=== PATIENT | male | born 1980 | race Two or more races ===

== ENCOUNTER 2024-10-25 15:07 | Inpatient (IN) | payer BC, SELFPAY ==
[2024-10-25] VITALS (37 sets, daily range): BP systolic 134–176; BP diastolic 84–111; PULSE 0–74; RESP 15–93; TEMP 36.1–36.9; O2SAT 90–98; BMI 27.4; BMI 29.2
--- NOTE | 2024-10-25 15:22 | XR_ITS ---
Examination: CT abdomen with intravenous contrast CT pelvis with intravenous contrast 2-D coronal reconstructions 2-D sagittal reconstructions Date and time of exam:October 25, 2024 1728 hours INDICATIONS: Onset upper abdominal pain today, history acute pancreatitis November 02, 2023. CTDI: vol (mGy) 6.9 DLP: (mGycm) 433 Technique: Multiple axial sections of the abdomen and pelvis have been obtained. 64 slice high-resolution scanner used. 3 mm axial sections have been obtained, post intravenous injection 60 cc [id number] 2-D sagittal, coronal reconstructions obtained. Low dose protocols were performed. One or more of the following dose reduction techniques were used; automated exposure control, adjustment of the mA and/or KV according to patient size, use of iterative reconstruction technique. Findings: No focal liver or splenic lesions Fatty infiltration throughout the liver No gallstones Severe acute pancreatitis, no pseudocyst No hydronephrosis Aorta normal size Normal appendix Colonic diverticulosis Contracted urinary bladder IMPRESSION: Severe acute pancreatitis
--- NOTE | 2024-10-25 15:24 | PD.EDRME ---
Rapid Medical Screening Exam RME Arrival date/time: 10/25/24 15:07 44-year-old male with history of pancreatitis and everyday alcohol use presents emergency department today for complaints of upper abdominal pain Chief Complaint: Abdominal Pain Vital signs: Vital Signs Temperature 98.4 F 10/25/24 15:17 Pulse Rate 55 L 10/25/24 15:17 Respiratory Rate 16 10/25/24 15:17 Blood Pressure 159/99 H 10/25/24 15:17 Pulse Oximetry (%) 98 10/25/24 15:17 Oxygen Delivery Method Room Air 10/25/24 15:17
[2024-10-25 15:40] LABS: Collection Type, Urine Clean Catch
[2024-10-25 15:46] LABS: Basophils % (Auto) 0 % (0-2.5); Eosinophils % (Auto) 0 % (0-10); Hematocrit 44.9 % (41.0-53.0); Hemoglobin 16.2 g/dL (13.5-16.0); Immature Granulocytes % (Auto) 0 % (0-0); Immature Granulocytes Auto 0.04 Thou/mm3 (0.00-0.00); Lymphocytes # (Auto) 0.7 Thou/mm3 (1.0-4.8); Lymphocytes % (Auto) 6 % (10-50); Mean Corpuscular HGB Conc 36.1 g/dl (31.0-37.0); Mean Corpuscular Hemoglobin 32.9 pg (25.0-35.0); Mean Corpuscular Volume 91 fL (80-100); Monocytes # (Auto) 0.8 Thou/mm3 (0.0-0.8); Monocytes % (Auto) 6 % (0-12); Neutrophils # (Auto) 10.5 Thou/mm3 (1.8-7.7); Neutrophils % (Auto) 87 % (37-80); Nucleated Red Blood Cell % 0 /100 WBC (0); Platelet Count 232 Thou/mm3 (140-440); RDW Standard Deviation 41.8 fL (35.1-43.9); Red Blood Count 4.93 Miln/mm3 (4.50-5.90); White Blood Count 12.1 Thou/mm3 (3.8-10.6)
[2024-10-25 15:48] LABS: Bilirubin,Urine Negative (Negative); Blood,Urine 2+ (Negative); Color,Urine Yellow (Lt Yel-Yel); Culture Indicated,Urine Not Indicated; Glucose, Urine Negative (Negative); Ketones,Urine 2+ (Negative); Leukocyte Esterase,Urine Negative (Negative); Nitrite,Urine Negative (Negative); Protein,Urine 1+ (Neg - Trace); RBC,Urine 19 /hpf (0-3); Specific Gravity,Urine 1.039 (1.001-1.035); Squamous Epithelial Cell,Urine < 1 /hpf (0-5); Urobilinogen,Urine Negative mg/dL (0.0-1.0); WBC,Urine 3 /hpf (0-5)
[2024-10-25 15:56] LABS: Alcohol, Urine Negative (Negative); Amphetamine/Methamp Scrn,U Negative (Negative); Barbiturate Screen,Urine Negative (Negative); Benzodiazepines Screen,Urine Negative (Negative); Benzoylecgonine Screen, Ur Positive (Negative); Fentanyl Screen,Urine Negative (Negative); Opiate Screen,Urine Negative (Negative); THC Screen,Urine Negative (Negative)
[2024-10-25 16:00] LABS: Clarity,Urine Hazy (Clear/Hazy)
[2024-10-25 16:19] LABS: Alanine Aminotransferase 45 U/L (10-49); Albumin, Serum 4.9 gm/dL (3.5-5.0); Albumin/Globulin Ratio 1.8 (1.2-2.2); Alkaline Phosphatase 95 U/L (46-116); Anion Gap 9 (7-16); Aspartate Amino Transferase 34 U/L (0-34); BUN/Creatinine Ratio 8 Ratio (12-20); Bilirubin,Total 1.2 mg/dL (0.3-1.2); Blood Urea Nitrogen 8 mg/dL (9-23); Calcium 9.8 mg/dL (8.3-10.6); Calcium (Corrected) 9.8 mg/dL (8.5-10.1); Carbon Dioxide 30.8 mMol/L (20.0-31.0); Chloride 95 mMol/L (98-107); Globulin 2.8 gm/dL (2.3-3.5); Glucose 135 mg/dL (74-106); Lipase 1256 U/L (12-53); Osmolality,Calculated 270 (275-295); Potassium 4.2 mMol/L (3.4-5.1); Sodium 135 mMol/L (136-145); Total Protein 7.7 gm/dL (5.7-8.2); eGFR > 60 See Note
--- NOTE | 2024-10-25 16:34 | PD.EDABDPN ---
ED Abdominal Pain RME/HPI General Chief Complaint: Abdominal Pain Stated complaint: ABD PAIN SINCE WEDNESDAY Time seen by provider: 10/25/24 16:14 Arrival date/time: 10/25/24 15:07 RME / HPI RME / HPI narrative: 44-year-old male with history of pancreatitis and everyday alcohol use presents emergency department today for complaints of upper abdominal pain. Onset of symptoms for 1 to 2 days, severity of symptoms moderate. Patient denies any fever denies any vomiting denies any other complaints. Last alcohol intake was 3 days ago. Patient was admitted in the hospital for acute pancreatitis. Related Data Previous Rx's ?Medication ?Instructions ?Recorded amlodipine 10 mg tablet 10 mg PO QDAY #30 tabs 11/05/23 pantoprazole 40 mg tablet,delayed 40 mg PO QDAY #30 tabs 11/05/23 release (Protonix) Allergies Allergy/AdvReac Type Severity Reaction Status Date / Time Penicillins Allergy Verified 10/25/24 15:10 Review of Systems Review of Systems Narrative Review of Systems: Review of system reviewed and within normal limits except mentioned in HPI ED Exam Narrative Physical exam: VITAL SIGNS: Reviewed. GENERAL APPEARANCE: Alert and interactive, follows commands, no acute distress, HEAD AND FACE: Non-traumatic. ENT: PERRL, pink conjunctivitis, eyelid no trauma, Mucous membrane moist. NECK: Supple, nontender, no nuchal rigidity. CHEST: No tenderness, no crepitus, no paradoxical movement, no retractions. LUNGS: Clear, well ventilated, symmetric, no rales, no wheezing, no ronchi, no stridor, good breath sounds bilaterally. HEART: Regular rate, regular rhythm, no murmur, no gallops. ABDOMEN: Soft, positive bowel sounds, nondistended, no guarding, left upper abdominal tenderness, no rebound, no masses, RECTAL: Deferred. GENITAL: Deferred. NEUROLOGICAL: Gross motor function intact sensory function intact, Appropriate for age. MUSCULOSKELETAL: low back nontender, full range of motion. EXTREMITIES: Nontender, full range of motion. SKIN: Color pink, dry, no rash, no lacerations, no abrasions, no contusions. LYMPHATICS: Deferred. Course Quality Measures none Orders Category Date Time Status Admit to Inpatient Status Routine Admission 10/25/24 22:04 Active Patient Condition Routine Admission 10/25/24 22:04 Ordered Aspiration precautions NOW Care 10/25/24 22:11 Active COVID-19 Screening Questionnaire NOW Care 10/25/24 20:[address] Screening NOW Care 10/25/24 15:23 Active Decision to Admit X1 Care 10/25/24 20:03 Completed Insert IV NOW Care 10/25/24 15:23 Active Intake and Output QSHIFT Care 10/25/24 22:15 Ordered Miscellaneous Nursing Order NOW Care 10/25/24 22:17 Active NPO NOW Care 10/25/24 16:21 Active NPO NOW Care 10/25/24 22:11 Active Notify provider NEEDED Care 10/25/24 22:04 Active Nurse Swallow Screen X1 Care 10/25/24 22:17 Active Seizure precautions NEEDED Care 10/25/24 22:05 Active Diet NPO (NOW) Diet 10/25/24 16:21 Completed Diet NPO (NOW) Diet 10/25/24 22:[address] abdomen pelvis w con Stat Exams 10/25/24 15:22 Completed US gall bladder Stat Exams 10/25/24 16:36 Completed Alcohol, Urine Stat Lab 10/25/24 15:36 Completed CBC AM DRAW Lab 10/26/24 05:00 Ordered CBC AM DRAW Lab 10/27/24 05:00 Ordered CBC AM DRAW Lab 10/28/24 05:00 Ordered CBC Stat Lab 10/25/24 15:34 Completed Comprehensive Metabolic Panel AM DRAW Lab 10/26/24 05:00 Ordered Comprehensive Metabolic Panel AM DRAW Lab 10/27/24 05:00 Ordered Comprehensive Metabolic Panel AM DRAW Lab 10/28/24 05:00 Ordered Comprehensive Metabolic Panel Stat Lab 10/25/24 15:34 Completed Drug Screen,Urine Stat Lab 10/25/24 15:36 Completed Lipase Stat Lab 10/25/24 15:34 Completed Lipid Panel AM DRAW Lab 10/26/24 05:00 Ordered Lipid Panel Stat Lab 10/25/24 15:34 Completed Magnesium AM DRAW Lab 10/26/24 05:00 Ordered Magnesium AM DRAW Lab 10/27/24 05:00 Ordered Magnesium AM DRAW Lab 10/28/24 05:00 Ordered Prothrombin Time with INR AM DRAW Lab 10/26/24 05:00 Ordered Troponin I Stat Lab 10/25/24 15:34 Completed UA, C/S IF [Urinalysis, C/S if Indicated] Stat Lab 10/25/24 15:36 Completed Acetaminophen Tab [Tylenol Tab] Med 10/25/24 22:10 Ordered 650 mg PO Q6H PRN Folic Acid Med 10/25/24 22:15 Ordered 1 mg PO BID HYDROcodone*/APAP 5/325 [[place] 5/325] Med 10/25/24 22:10 Ordered 1 tab PO Q4HR PRN Heparin Inj Med 10/26/24 06:00 Ordered 5,000 unit SC Q8HR LORazepam [Ativan Inj] Med 10/25/24 16:35 Discontinued 2 mg IVP X1 ONE LORazepam [Ativan] Med 10/25/24 22:15 Ordered 0.5 mg PO Q4HR PRN LORazepam [Ativan] Med 10/25/24 22:15 Ordered 1 mg PO Q4HR PRN LORazepam [Ativan] Med 10/25/24 22:15 Ordered 2 mg PO Q4HR PRN Morphine Inj Med 10/25/24 22:10 Ordered 1 mg IVP Q2H PRN Morphine Inj Med 10/25/24 16:20 Discontinued 4 mg IVP X1 ONE Morphine Inj Med 10/25/24 20:04 Discontinued 4 mg IVP X1 ONE Ondansetron Inj [Zofran Inj] Med 10/25/24 22:10 Ordered 4 mg IVP Q6H PRN Ondansetron Inj [Zofran Inj] Med 10/25/24 16:20 Discontinued 4 mg IVP X1 ONE Ringers Lactated 1000 ml [Lactated Ringers] 1,000 ml Med 10/25/24 16:36 Discontinued IV 999 mls/hr Sodium Chloride 0.9% 1000 ml [Ns] 1,000 ml Med 10/25/24 22:15 Ordered IV 110 mls/hr Thiamine [Vitamin B-1] Med 10/25/24 22:15 Ordered 100 mg PO BID Code Status Routine Oth 10/25/24 22:04 Ordered Oxygen Delivery PRN RT 10/25/24 22:04 Active Vital Signs Vital signs: Vital Signs Temperature 98.4 F 10/25/24 15:17 Pulse Rate 55 L 10/25/24 15:17 Respiratory Rate 16 10/25/24 15:17 Blood Pressure 159/99 H 10/25/24 15:17 Pulse Oximetry (%) 98 10/25/24 15:17 Oxygen Delivery Method Room Air 10/25/24 15:17 Abdominal Pain [facility] Narrative [facility] Narrative:: 44-year-old male with history of pancreatitis and everyday alcohol use presents emergency department today for complaints of upper abdominal pain. Onset of symptoms for 1 to 2 days, severity of symptoms moderate. Patient denies any fever denies any vomiting denies any other complaints. Last alcohol intake was 3 days ago. Patient was admitted in the hospital for acute pancreatitis. Patient's workup is significant for leukocytosis of 12.1 CMP unremarkable except for lipase of 1256. Ultrasound of the gallbladder came back unremarkable patient tested positive for cocaine. Urine alcohol is negative. CT scan of the abdomen is significant for severe pancreatitis otherwise unremarkable. Patient received IV fluids, lorazepam, morphine IV Discussed with hospitalist who admitted the patient. Patient data External records reviewed:: None Clinical information provided by:: patient Social determinants that could affect healthcare access:: alcohol use Patient has the following chronic illnesses:: Chronic alcoholism How is presenting disease/condition affected by chronic disease/condition?: exacerbated by Evaluation data The following diagnostics were reviewed and interpreted by me:: lab results and radiology exam(s) Lab and/or radiology exams considered but not ordered:: Plan see results [facility] Interpretation Summary: See results in MDM Medications / Prescriptions Medications or Prescriptions considered but not ordered:: None Medication administrations:: Medication Administration History Acetaminophen (Acetaminophen 325 Mg Tablet) 650 mg PO Q6H PRN PRN Reason: pain and Fever >100.4 Stop: 11/24/24 22:09 Hydrocodone Bitart/Acetaminophen (Hydrocodone/Apap 5/325 Tablet) 1 tab PO Q4HR PRN PRN Reason: PAIN SCALE 4-6 (Moderate Stop: 10/30/24 22:09 Folic Acid (Folic Acid 1 Mg Tablet) 1 mg PO BID [facility] Stop: 10/30/24 22:14 Heparin Sodium (Porcine) (Heparin Sod Inj 5000 Unit/Ml Vial) 5,000 unit SC Q8HR [facility] Stop: 11/09/24 05:59 Sodium Chloride (Ns) 1,000 mls @ 110 mls/hr IV .Q9H6M [facility] Stop: 10/27/24 01:31 Lorazepam (Lorazepam 0.5 Mg Tablet) 0.5 mg PO Q4HR PRN PRN Reason: CIWA Score 2-6 Stop: 10/30/24 22:14 Lorazepam (Lorazepam 0.5 Mg Tablet) 1 mg PO Q4HR PRN PRN Reason: CIWA SCORE 7-11 Stop: 10/30/24 22:14 Lorazepam (Lorazepam 0.5 Mg Tablet) 2 mg PO Q4HR PRN PRN Reason: CIWA SCORE 12-15 Stop: 10/30/24 22:14 Morphine Sulfate (Morphine Sulf Inj 10 Mg/Ml Vial) 1 mg IVP Q2H PRN PRN Reason: PAIN SCALE 7-10 (Severe Stop: 10/30/24 22:09 Ondansetron HCl (Ondansetron Inj 2 Mg/Ml Inj 2 Ml) 4 mg IVP Q6H PRN; Protocol PRN Reason: NAUSEA OR VOMITING Stop: 11/24/24 22:09 Thiamine HCl (Thiamine 100 Mg Tablet) 100 mg PO BID KRISTIN Stop: 10/30/24 22:14 Discontinued Medications Lactated Ringer's (Lactated Ringers) 1,000 mls @ 999 mls/hr IV .Q1H1M ONE Stop: 10/25/24 17:36 Last Infusion: 10/25/24 19:15 Dose: Infused Documented By: Admin: 10/25/24 17:27 Dose: 999 mls/hr Documented By: CG Lorazepam (Lorazepam 2 Mg/Ml Vial) 2 mg IVP X1 ONE Stop: 10/25/24 16:36 Last Admin: 10/25/24 17:26 Dose: 2 mg Documented By: CG Morphine Sulfate (Morphine Sulf Inj 10 Mg/Ml Vial) 4 mg IVP X1 ONE Stop: 10/25/24 16:21 Last Admin: 10/25/24 17:26 Dose: 4 mg Documented By: CG Morphine Sulfate (Morphine Sulf Inj 10 Mg/Ml Vial) 4 mg IVP X1 ONE Stop: 10/25/24 20:05 Last Admin: 10/25/24 20:46 Dose: 4 mg Documented By: CG Ondansetron HCl (Ondansetron Inj 2 Mg/Ml Inj 2 Ml) 4 mg IVP X1 ONE; Protocol Stop: 10/25/24 16:21 Last Admin: 10/25/24 17:27 Dose: 4 mg Documented By: CG IV fluids, morphine, lorazepam and Zofran Consultations Consultation(s) initiated? (list below): No Consultation #1 (Physician, Specialty, Details): None Diagnosis Differential diagnosis abdominal pain: abdominal pain, pancreatitis and small bowel obstruction Most likely diagnosis given after review of the tests above:: Chronic alcoholism, acute pancreatitis Admission Indicated Admission indicated?: indicated Explain why admission is indicated or not indicated:: Patient is to be admitted for further management Admission Request Was there a request for admission?: Yes Admission Attestation Admission request attestation: Discussed case with [Dr. Jules] from Hospitalist service regarding admission. Discussed patients ED course, exam findings, labs, and radiology results. The Hospitalist [agrees] to accept the patient for admission. Disposition Plan Disposition Plan: Admit Discharge Plan Plan Patient Disposition: Admit Acute Care w/in Hospital Prescriptions/Referrals Prescriptions/Med Rec: No Action amlodipine 10 mg tablet 10 mg PO QDAY Qty: 30 0RF pantoprazole [Protonix] 40 mg tablet,delayed release (DR/EC) 40 mg PO QDAY Qty: 30 0RF Referrals: Gavin Maria MD ([place]) [Primary Care Provider] - In 1 week Problem List Clinical Impression: Acute pancreatitis Patient/Caregiver Discharge Instructions Print Language: Portuguese Stand Alone Forms: Maureen Award Info., Patient Portal Info Letter
--- NOTE | 2024-10-25 16:36 | XR_ITS ---
Examination: Abdomen sonogram, Limited Date and time of exam: October 25, 2024 1447 hours INDICATIONS: Abdominal pain beginning 3 days ago, history pancreatitis one year ago Technique: Real-time delgado scale transabdominal sonographic images of the upper abdomen obtained. Findings: Normal gallbladder Normal common bile duct 0.5 cm Pancreatic and 3.0 cm Liver 15.4 cm fatty infiltration Normal hepatopedal portal venous flow Patent IVC IMPRESSION: Normal gallbladder. Fatty liver
[2024-10-25] MEDS: LORazepam 2 MG/ML VIAL IVP (17:26)
[2024-10-25] MEDS: MORPHINE SULF INJ 10 MG/ML VIAL 4 MG IVP ×2 (17:26→20:46)
[2024-10-25] MEDS: RINGERS LACTATED 1000 ML 1,000 ML 999 ML IV (17:27)
[2024-10-25] MEDS: ONDANSETRON INJ 2 MG/ML INJ 2 ML 4 MG IVP (17:27)
[2024-10-25 17:56] LABS: Cardiac Risk Estimate 2.8 RATIO (4.0-6.7); Cholesterol 211 mg/dL (132-200); HDL Cholesterol 76 mg/dL (40-60); LDL Cholesterol,Calculated 113 mg/dL (0-130); Triglycerides 110 mg/dL (30-150); Troponin I < 0.020 ng/mL (0.0-0.045)
--- NOTE | 2024-10-25 22:28 | ESHP_ITS ---
<Statement entered by Trista Guido MD - 10/26/24 06:02> I Trista Guido MD reviewed the note and agree with the resident's assessment & plan with exceptions as below. I have personally reviewed labs, imaging, home meds/prior records, examined the patient, formulated and discussed management plan with the IM team. 44-year-old male with Hx of HTN, polysubstance use disorder, fatty liver presented to ED with abdominal pain and nausea noted to have acute pancreatitis. Reports taking heavy amount of alcohol particularly on weekends with which drinking. Also noted to have cocaine on UDS. Will proceed with IV fluid resuscitation, keep n.p.o., start on Protonix 40 mg IV daily and Zofran for nausea as needed. Obtain CXR and EKG and echocardiogram for evaluation of myocardial function in the setting of chronic substance use. Will start on liquid diet as tolerated likely tomorrow afternoon Documentation for date of: 10/25/24 HPI History of Present Illness Chief complaint: Abdominal pain History of present illness: 44-year-old male with past medical history of alcohol abuse disorder who presented to the ED due to abdominal pain. Patient states abdominal pain started since Wednesday that has been progressively getting worse. He states he was not drinking the prior night states he had a bit too much to drink ate something and went to sleep and then the following day he woke up with the abdominal pain. He states he drinks at least 15 beers a day, everyday. Currently pain is rated 10 out of 10 and has been unable to have any p.o. intake since Wednesday. Patient denies fever, chills, shortness of breath, chest pain, palpitations, nausea, vomiting, diarrhea, recent travel, sick contacts. ED course: ED vitals: BP 159/99, HR 55, saturating 98% on room air ED labs: Leukocytosis, polycythemia, sodium 135, chloride 95, BUN 8, glucose 135, cholesterol 211, HDL 76, lipase 1256, UA showed 2+ ketones 2+ blood 1+ protein, U-Tox positive for cocaine, gallbladder ultrasound shows normal gallbladder, fatty liver, abdomen pelvis CT scan shows severe acute pancreatitis. In the ED patient received morphine 4 mg, lorazepam, Zofran, 1 L LR, thiamine, folic acid. PMHx: As above SX Hx: None Social Hx: Cocaine (last use Wednesday), drinks at least 15 beers a day last drink on Wednesday, denies cigarette use Review of Systems Review of Systems Systems Reviewed: All systems reviewed, normal except as documented Narrative Review of Systems: All 12 systems reviewed and found negative unless otherwise states in [facility] HPI. Exam Vital Signs Temp Pulse Resp BP Pulse Ox O2 Del Method O2 Flow Rate 98.4 F 51 L 17 172/105 H 96 Nasal Cannula 3 10/25/24 22:13 10/25/24 22:13 10/25/24 22:13 10/25/24 22:13 10/25/24 22:13 10/25/24 22:13 10/25/24 22:13 Narrative Exam GENERAL: NAD, AAOx3 HEENT: Dry mucosa. Eyes open, symmetrical, & clear CARDIO: Heart RRR, no obvious murmurs PULM: No noted coughing/dyspnea CTA B/L, no R/W/R GI: Abdomen soft, nondistended, pain to palpation in epigastric region. BS appreciated SKIN/MSK/EXT: No wounds/rashes/edema/amputations, no pain on palpation. Pedal pulses present B/L NEURO: AAOx3, no focal neuro deficits, able to move all 4 extremities Results: Labs 10/25/24 15:34 10/25/24 15:34 Labs: Short CBC 10/25/24 Range/Units 15:34 WBC 12.1 H (3.8-10.6) Thou/mm3 Hgb 16.2 H (13.5-16.0) g/dL Hct 44.9 (41.0-53.0) % Plt Count 232 (140-440) Thou/mm3 [facility] 10/25/24 15:34 Sodium 135 L Potassium 4.2 Chloride 95 L Carbon Dioxide 30.8 BUN 8 L Creatinine 1.0 Glucose 135 H Calcium 9.8 Cardiac Enzymes 10/25/24 Range/Units 15:34 Troponin I < 0.020 (0.0-0.045) ng/mL Liver Function 10/25/24 Range/Units 15:34 Total Bilirubin 1.2 (0.3-1.2) mg/dL AST 34 (0-34) U/L ALT 45 (10-49) U/L Alkaline Phosphatase 95 (46-116) U/L Albumin 4.9 (3.5-5.0) gm/dL Urine 10/25/24 Range/Units 15:36 Urine Color Yellow (Lt Yel-Yel) Urine Clarity Hazy (Clear/Hazy) Urine pH 6.0 (5.0-7.0) Ur Specific [place] 1.039 H (1.001-1.035) Urine Protein 1+ A (Neg - Trace) Urine Glucose (UA) Negative (Negative) Quality Measures Quality Measures none Medications Home Medications and Allergies Allergies Allergy/AdvReac Type Severity Reaction Status Date / Time Penicillins Allergy Verified 10/25/24 15:10 Visit Medications Acetaminophen (Acetaminophen 325 Mg Tablet) 650 mg PO Q6H PRN PRN Reason: pain and Fever >100.4 Stop: 11/24/24 22:09 Hydrocodone Bitart/Acetaminophen (Hydrocodone/Apap 5/325 Tablet) 1 tab PO Q4HR PRN PRN Reason: PAIN SCALE 4-6 (Moderate Stop: 10/30/24 22:09 Folic Acid (Folic Acid 1 Mg Tablet) 1 mg PO BID [facility] Stop: 10/30/24 22:14 Heparin Sodium (Porcine) (Heparin Sod Inj 5000 Unit/Ml Vial) 5,000 unit SC Q8HR [facility] Stop: 11/09/24 05:59 Sodium Chloride (Ns) 1,000 mls @ 110 mls/hr IV .Q9H6M [facility] Stop: 10/27/24 01:31 Lorazepam (Lorazepam 0.5 Mg Tablet) 0.5 mg PO Q4HR PRN PRN Reason: CIWA Score 2-6 Stop: 10/30/24 22:14 Lorazepam (Lorazepam 0.5 Mg Tablet) 1 mg PO Q4HR PRN PRN Reason: CIWA SCORE 7-11 Stop: 10/30/24 22:14 Lorazepam (Lorazepam 0.5 Mg Tablet) 2 mg PO Q4HR PRN PRN Reason: CIWA SCORE 12-15 Stop: 10/30/24 22:14 Morphine Sulfate (Morphine Sulf Inj 10 Mg/Ml Vial) 1 mg IVP Q2H PRN PRN Reason: PAIN SCALE 7-10 (Severe Stop: 10/30/24 22:09 Ondansetron HCl (Ondansetron Inj 2 Mg/Ml Inj 2 Ml) 4 mg IVP Q6H PRN; Protocol PRN Reason: NAUSEA OR VOMITING Stop: 11/24/24 22:09 Thiamine HCl (Thiamine 100 Mg Tablet) 100 mg PO BID KRISTIN Stop: 10/30/24 22:14 Discontinued Medications Lactated Ringer's (Lactated Ringers) 1,000 mls @ 999 mls/hr IV .Q1H1M ONE Stop: 10/25/24 17:36 Last Infusion: 10/25/24 19:15 Dose: Infused Lorazepam (Lorazepam 2 Mg/Ml Vial) 2 mg IVP X1 ONE Stop: 10/25/24 16:36 Last Admin: 10/25/24 17:26 Dose: 2 mg Morphine Sulfate (Morphine Sulf Inj 10 Mg/Ml Vial) 4 mg IVP X1 ONE Stop: 10/25/24 16:21 Last Admin: 10/25/24 17:26 Dose: 4 mg Morphine Sulfate (Morphine Sulf Inj 10 Mg/Ml Vial) 4 mg IVP X1 ONE Stop: 10/25/24 20:05 Last Admin: 10/25/24 20:46 Dose: 4 mg Ondansetron HCl (Ondansetron Inj 2 Mg/Ml Inj 2 Ml) 4 mg IVP X1 ONE; Protocol Stop: 10/25/24 16:21 Last Admin: 10/25/24 17:27 Dose: 4 mg Assessment & Plan Plan 44-year-old male with past medical history as stated above who presented to the ED due to abdominal pain. Patient will be admitted for management of acute pancreatitis. #Acute pancreatitis #Alcohol use disorder #Cocaine use disorder Likely secondary to heavy alcohol use Abdominal CT scan shows acute pancreatitis Lipase 1256 CIWA of 1-2 at the time of evaluation in ED ? N.p.o. for now as patient does not want to eat, can start clear liquid diet and advance as tolerated ? CIWA protocol ? Thiamine ? Folic acid ? Aggressive IV hydration ? Pain control ? consider social consult in the setting of alcoholl abuse and cocaine abuse Health Maintenance: Disposition: MedSurg, aggressive IV hydration Fluids: NS Feeding: N.p.o. Thrombo prophylaxis: Heparin Gastric Ulcer prophylaxis: Not indicated CODE STATUS: Full code Case discussed with my attending Dr. Hay Aguiar MD PGY-1 Disclaimer: Despite multiple revisions, due to the dictation software being used, the document bellow may not be free of grammatical errors including phonetic/typographic errors. However, this does not deter from our commitment to providing health care in the patient's best interest in mind.
[2024-10-25] MEDS: THIAMINE 100 MG TABLET PO (22:56)
[2024-10-25] MEDS: FOLIC ACID 1 MG TABLET PO (22:56)
[2024-10-25] MEDS: SODIUM CHLORIDE 0.9% 1000 ML 1,000 ML 110 ML IV (22:57)
--- NOTE | 2024-10-25 23:10 | XR_ITS ---
Examination: AP chest single view TECHNIQUE: AP portable upright chest single view Date and time: October 25, 2024 11:35 PM Comparison February 24, 2024 INDICATIONS: Chest pain today FINDINGS: Normal heart size. Lungs are clear. The osseous structures are intact IMPRESSION: No active disease
[2024-10-26] VITALS (9 sets, daily range): BP systolic 138–168; BP diastolic 76–102; PULSE 49–80; RESP 16–98; TEMP 36.2–36.7; O2SAT 95–98
[2024-10-26] MEDS: ACETAMINOPHEN 325 MG TABLET 650 MG PO ×2 (00:17→19:12)
[2024-10-26] MEDS: MORPHINE SULF INJ 10 MG/ML VIAL IVP (03:44)
[2024-10-26] MEDS: HEPARIN SOD INJ 5000 UNIT/ML VIAL SC ×3 (05:12→22:03)
[2024-10-26 05:28] LABS: Basophils % (Auto) 0 % (0-2.5); Eosinophils % (Auto) 0 % (0-10); Hematocrit 43.9 % (41.0-53.0); Hemoglobin 15.7 g/dL (13.5-16.0); Immature Granulocytes % (Auto) 0 % (0-0); Immature Granulocytes Auto 0.04 Thou/mm3 (0.00-0.00); Lymphocytes # (Auto) 0.6 Thou/mm3 (1.0-4.8); Lymphocytes % (Auto) 5 % (10-50); Mean Corpuscular HGB Conc 35.8 g/dl (31.0-37.0); Mean Corpuscular Volume 92 fL (80-100); Monocytes # (Auto) 0.8 Thou/mm3 (0.0-0.8); Monocytes % (Auto) 7 % (0-12); Neutrophils # (Auto) 10.3 Thou/mm3 (1.8-7.7); Neutrophils % (Auto) 88 % (37-80); Nucleated Red Blood Cell % 0 /100 WBC (0); Platelet Count 186 Thou/mm3 (140-440); RDW Standard Deviation 42.2 fL (35.1-43.9); Red Blood Count 4.76 Miln/mm3 (4.50-5.90); White Blood Count 11.8 Thou/mm3 (3.8-10.6)
[2024-10-26 05:38] LABS: Prothrombin Time 10.9 Seconds (9.0-12.2)
[2024-10-26 06:07] LABS: Alanine Aminotransferase 31 U/L (10-49); Albumin, Serum 4.2 gm/dL (3.5-5.0); Albumin/Globulin Ratio 1.7 (1.2-2.2); Alkaline Phosphatase 77 U/L (46-116); Anion Gap 8 (7-16); Aspartate Amino Transferase 26 U/L (0-34); BUN/Creatinine Ratio 9 Ratio (12-20); Blood Urea Nitrogen 8 mg/dL (9-23); Calcium 9.2 mg/dL (8.3-10.6); Calcium (Corrected) 9.2 mg/dL (8.5-10.1); Carbon Dioxide 29.4 mMol/L (20.0-31.0); Cardiac Risk Estimate 2.8 RATIO (4.0-6.7); Chloride 98 mMol/L (98-107); Cholesterol 175 mg/dL (132-200); Creatinine (Component) 0.9 mg/dL (0.6-1.3); Globulin 2.5 gm/dL (2.3-3.5); Glucose 108 mg/dL (74-106); HDL Cholesterol 62 mg/dL (40-60); LDL Cholesterol,Calculated 98 mg/dL (0-130); Magnesium 1.9 mg/dL (1.6-2.6); Osmolality,Calculated 269 (275-295); Potassium 4.3 mMol/L (3.4-5.1); Sodium 135 mMol/L (136-145); Total Protein 6.7 gm/dL (5.7-8.2); Triglycerides 77 mg/dL (30-150); eGFR > 60 See Note
[2024-10-26] MEDS: THIAMINE 100 MG TABLET PO ×2 (09:09→20:36)
[2024-10-26] MEDS: FOLIC ACID 1 MG TABLET PO ×2 (09:09→20:36)
[2024-10-26] MEDS: PANTOPRAZOLE INJ 40 MG VIAL IVP (09:09)
[2024-10-26] MEDS: SODIUM CHLORIDE 0.9% 1000 ML 1,000 ML 110 ML IV (09:10)
--- NOTE | 2024-10-26 09:51 | EKG_ITS ---
[facility] Test Date: 2024-10-26 Pat Name: BIANCA ROMERO [facility] Gender[facility] Male [employer] Agent: SUKUMAR : 1980 Requested By: Kerri Desai Order Number: [id number] Reading MD: Kerri Desai Measurements Intervals [place] Rate: 59 P: 29 DC: 160 QRS: 33 QRSD: 91 T: 30 QT: 405 QTc: 401 Interpretive Statements SINUS BRADYCARDIA Compared to ECG 02/24/2024 08:51:45 No significant changes /store/S0/[id number].pdf
[2024-10-26] MEDS: SODIUM CHLORIDE 0.9% 1000 ML 1,000 ML 200 ML IV ×3 (10:25→20:35)
--- NOTE | 2024-10-26 12:02 | PC.SS ---
Patient Johann Bell is a 44 Year old male admitted for Pancreatitis. SS met with patient at bedside to discuss discharge plan and verify demographic information. Patient reports he lives at home with family, patient reports his , Nenita Mika is his surrogate decision maker, [phone]. Patient reports he does not utilize any source DME, patient is able to complete all ADL's independently. Choice of pharmacy is [facility]. PCP is Gavin Maria. At time of discharge patient reports she will discharge home, his will provive transportation. Next of kin: Nenita Brennan Discharge plan home
[2024-10-26] MEDS: HYDROcodone/APAP 5/325 TABLET 1 TAB PO (12:54)
--- NOTE | 2024-10-26 18:32 | PD.RESPRO ---
Documentation for date of: 10/26/24 Subjective Subjective Interval history: Patient examined at bedside, has no major complaints. Denies any nausea, vomiting. Has been able to pass gas but no bowel movement yet. Pain has improved since admission. Is requesting to start clear liquid diet. Advance as tolerated. BP 150/82, sinus bradycardia. Follow-up with echo to evaluate for any possible underlying anatomical defects. He denies any dizziness or chest pain. WBCs down trended to 11, CMP unremarkable. Continue CIWA, IV fluids. He was counseled on drinking cessation. Echo is pending. Exam Vital Signs Temp Pulse Resp BP Pulse Ox O2 Del Method O2 Flow Rate 97.2 F 80 16 138/76 H 95 Room Air 1 10/26/24 16:00 10/26/24 16:00 10/26/24 16:10/26/24 16:10/26/24 16:10/26/24 16:10/26/24 07:52 Narrative Exam General: young male, No acute distress, cooperative HEENT: NCAT, No JVD noted. Mucosa moist. Pupils are equal and reactive to light bilaterally Cardiovascular: Normal S1 and S2. Regular rate and rhythm. Respiratory: Lungs are clear to auscultation bilaterally. No wheezing or crackles heard. Abdomen: Soft, nontender, not distended, normal bowel sounds. Skin: Warm to touch, dry, no rashes noted Musculoskeletal: No gross injuries. Able to move all 4 extremities. No pitting edema Neuro: Alert and oriented x3. No focal neuro deficits. Psych: Normal affect and mood Objective Labs 10/27/24 05:00 10/27/24 05:00 Labs: Laboratory Results - last 24 hr 10/26/24 04:45 WBC 11.8 H RBC 4.76 Hgb 15.7 Hct 43.9 MCV 92 MCH 33.0 MCHC 35.8 RDW Std Deviation 42.2 Plt Count 186 D Neut % (Auto) 88 H Lymph % (Auto) 5 L [place] % (Auto) 7 Eos % (Auto) 0 Baso % (Auto) 0 Neut # (Auto) 10.3 H Lymph # (Auto) 0.6 L [place] # (Auto) 0.8 Eos # (Auto) 0.0 Baso # (Auto) 0.0 Immature Gran # (Auto) 0.04 H Absolute Nucleated RBC 0.00 Immature Gran % 0 Nucleated RBC % 0 PT 10.9 INR 1.0 Sodium 135 L Potassium 4.3 Chloride 98 Carbon Dioxide 29.4 Anion Gap 8 BUN 8 L Creatinine 0.9 Estim Creat Clear Calc 102.0 eGFR > 60 BUN/Creatinine Ratio 9 L Glucose 108 H Calculated Osmolality 269 L Calcium 9.2 Corrected Calcium 9.2 Magnesium 1.9 Total Bilirubin 1.0 AST 26 ALT 31 Alkaline Phosphatase 77 Total Protein 6.7 Albumin 4.2 D Globulin 2.5 Albumin/Globulin Ratio 1.7 Triglycerides 77 Cholesterol 175 LDL Cholesterol, Calc 98 HDL Cholesterol 62 H Cholesterol/HDL Ratio 2.8 L Quality Measures Quality Measures none Assessment & Plan Assessment Current Active Medications: Generic Name Dose Route Start Last Admin Trade Name Freq PRN Reason Stop Dose Admin Acetaminophen 650 mg 10/25/24 22:10 10/26/24 00:17 Acetaminophen 325 Mg Tablet PO 11/24/24 22:09 650 mg Q6H PRN Administration pain and Fever >100.4 Protocol Hydrocodone Bitart/Acetaminophen 1 tab 10/25/24 22:10 10/26/24 12:54 Hydrocodone/Apap 5/325 Tablet PO 10/30/24 22:09 1 tab Q4HR PRN Administration PAIN SCALE 4-6 (Moderate Folic Acid 1 mg 10/25/24 22:15 10/26/24 09:09 Folic Acid 1 Mg Tablet PO 10/30/24 22:14 1 mg BID KRISTIN Administration Heparin Sodium (Porcine) 5,000 unit 10/26/24 06:00 10/26/24 13:49 Heparin Sod Inj 5000 Unit/Ml Vial SC 11/09/24 05:59 5,000 unit Q8HR KRISTIN Administration Sodium Chloride 1,000 mls @ 200 mls/hr 10/26/24 09:51 10/26/24 15:27 Ns IV 10/27/24 00:50 200 mls/hr .Q5H KRISTIN Administration Lorazepam 0.5 mg 10/25/24 22:15 Lorazepam 0.5 Mg Tablet PO 10/30/24 22:14 Q4HR PRN CIWA Score 2-6 Lorazepam 1 mg 10/25/24 22:15 Lorazepam 0.5 Mg Tablet PO 10/30/24 22:14 Q4HR PRN CIWA SCORE 7-11 Lorazepam 2 mg 10/25/24 22:15 Lorazepam 0.5 Mg Tablet PO 10/30/24 22:14 Q4HR PRN CIWA SCORE 12-15 Morphine Sulfate 1 mg 10/25/24 22:10 10/26/24 03:44 Morphine Sulf Inj 10 Mg/Ml Vial IVP 10/30/24 22:09 1 mg Q2H PRN Administration PAIN SCALE 7-10 (Severe Ondansetron HCl 4 mg 10/25/24 22:10 Ondansetron Inj 2 Mg/Ml Inj 2 Ml IVP 11/24/24 22:09 Q6H PRN NAUSEA OR VOMITING Protocol Pantoprazole Sodium 40 mg 10/26/24 09:00 10/26/24 09:09 Pantoprazole Inj 40 Mg Vial IVP 11/25/24 08:59 40 mg QDAY KRISTIN Administration Thiamine HCl 100 mg 10/25/24 22:15 10/26/24 09:09 Thiamine 100 Mg Tablet PO 10/30/24 22:14 100 mg BID KRISTIN Administration Plan 44-year-old male with past medical history as stated above who presented to the ED due to abdominal pain. Patient will be admitted for management of acute pancreatitis. #Acute pancreatitis 2/2 alcohol use #Alcohol use disorder #Cocaine use disorder Likely secondary to heavy alcohol use, typically drinks about 12 beers per day. Last drink was on Wednesday. Abdominal CT scan shows acute pancreatitis Lipase 1256 CIWA of 1-2 at the time of evaluation in ED ? Started clear liquid diet advance as tolerated ? CIWA protocol ? Thiamine ? Folic acid ? IV hydration NS 200 cc/h ? Pain control ? consider social consult in the setting of alcohol abuse and cocaine abuse # Asymptomatic sinus bradycardia Has seen die repairer stamping once in the past. Does not recall any abnormal findings. Says that he only had EKG done. He is asymptomatic. Unlikely to be medication induced as he did not take anything outpatient. - Follow-up with echo Health Maintenance: Disposition: MedSurg, IV fluids for acute pancreatitis, CIWA Fluids: NS 200 cc/h Feeding: Started clear liquid diet advance as tolerated Thrombo prophylaxis: Heparin CODE STATUS: Full code The patient's management plan was discussed with my attending physician Dr. Gonzalez. Shivani Spaulding, PGY-1 Attending Provider Attestation/Addendum I attest that I was physically present for the evaluation, physical examination, lab and imaging review of the patient with the residents. I discussed the case with the residents and agree with the findings and plans of care as documented above. Patient is a 44 years old male with past medical history of hypertension, alcohol abuse who presented to the ED with complaint of abdominal pain, nausea. He was found to have acute pancreatitis and was admitted overnight for management of acute pancreatitis secondary to alcohol abuse. Patient also tested positive for cocaine on urine toxicology. At bedside today, patient states she is feeling well and denies any new complaints. Continues to have mild abdominal pain. Stated that he is feeling hungry and would like to restart diet. Vitals are stable, lab results show improving WBC. We will continue with aggressive IV hydration, start him on clear liquid diet and monitor closely. Continues to be on thiamine and folate along with CIWA protocol. CIWA score has been 0. José Miguel Gonzalez MD
[2024-10-27] VITALS (8 sets, daily range): BP systolic 125–138; BP diastolic 74–90; PULSE 60–75; RESP 17–97; TEMP 36.1–36.9; O2SAT 94–97
[2024-10-27] MEDS: ACETAMINOPHEN 325 MG TABLET 650 MG PO ×2 (01:59→16:01)
[2024-10-27] MEDS: HEPARIN SOD INJ 5000 UNIT/ML VIAL SC ×3 (05:39→21:26)
[2024-10-27 05:48] LABS: Basophils % (Auto) 0 % (0-2.5); Eosinophils # (Auto) 0.1 Thou/mm3 (0.0-0.5); Eosinophils % (Auto) 1 % (0-10); Hematocrit 37.2 % (41.0-53.0); Hemoglobin 13.2 g/dL (13.5-16.0); Immature Granulocytes % (Auto) 0 % (0-0); Immature Granulocytes Auto 0.03 Thou/mm3 (0.00-0.00); Lymphocytes # (Auto) 1.1 Thou/mm3 (1.0-4.8); Lymphocytes % (Auto) 13 % (10-50); Mean Corpuscular HGB Conc 35.5 g/dl (31.0-37.0); Mean Corpuscular Hemoglobin 33.2 pg (25.0-35.0); Mean Corpuscular Volume 94 fL (80-100); Monocytes # (Auto) 0.6 Thou/mm3 (0.0-0.8); Monocytes % (Auto) 8 % (0-12); Neutrophils # (Auto) 6.4 Thou/mm3 (1.8-7.7); Neutrophils % (Auto) 78 % (37-80); Nucleated Red Blood Cell % 0 /100 WBC (0); Platelet Count 144 Thou/mm3 (140-440); Red Blood Count 3.98 Miln/mm3 (4.50-5.90); White Blood Count 8.2 Thou/mm3 (3.8-10.6)
[2024-10-27 06:17] LABS: Alanine Aminotransferase 21 U/L (10-49); Albumin, Serum 3.8 gm/dL (3.5-5.0); Albumin/Globulin Ratio 1.7 (1.2-2.2); Alkaline Phosphatase 63 U/L (46-116); Anion Gap 9 (7-16); Aspartate Amino Transferase 19 U/L (0-34); BUN/Creatinine Ratio 8 Ratio (12-20); Bilirubin,Total 0.9 mg/dL (0.3-1.2); Blood Urea Nitrogen 6 mg/dL (9-23); Calcium 8.6 mg/dL (8.3-10.6); Calcium (Corrected) 8.8 mg/dL (8.5-10.1); Carbon Dioxide 28.5 mMol/L (20.0-31.0); Chloride 101 mMol/L (98-107); Creatinine (Component) 0.8 mg/dL (0.6-1.3); Estimated Creatinine Clearance 114.7 mL/min (>60); Globulin 2.3 gm/dL (2.3-3.5); Glucose 96 mg/dL (74-106); Osmolality,Calculated 273 (275-295); Sodium 138 mMol/L (136-145); Total Protein 6.1 gm/dL (5.7-8.2); eGFR > 60 See Note
[2024-10-27] MEDS: THIAMINE 100 MG TABLET PO ×2 (08:26→21:25)
[2024-10-27] MEDS: FOLIC ACID 1 MG TABLET PO ×2 (08:26→21:26)
[2024-10-27] MEDS: PANTOPRAZOLE INJ 40 MG VIAL IVP (08:26)
--- NOTE | 2024-10-27 09:49 | ESPR_ITS ---
Documentation for date of: 10/27/24 Subjective Subjective Interval history: Patient was seen and examined at side. No acute overnight events. Labs and vitals were reviewed. Hemoglobin dropped to 13.2, hematocrit 37.2, most likely hemodilutional in the setting of aggressive IV. Patient yesterday started full liquid diet, tolerated well, today will advance diet to regular diet, since yesterday patient received only 1 tablet of [place], upon our evaluation was not complaining of any pain, nausea. We will advance diet, continue low rate maintenance echo is still pending, however patient has heart rate has been in the normal range, follow-up with echo results to rule out any structural causes. Anticipate discharge in next 24 hours. Exam Vital Signs Temp Pulse Resp BP Pulse Ox O2 Del Method O2 Flow Rate 97.0 F 60 18 127/82 97 Room Air 1 10/27/24 08:00 10/27/24 08:00 10/27/24 08:00 10/27/24 08:00 10/27/24 08:00 10/27/24 08:00 10/26/24 07:52 Narrative Exam General: young male, No acute distress, cooperative HEENT: NCAT, No JVD noted. Mucosa moist. Pupils are equal and reactive to light bilaterally Cardiovascular: Normal S1 and S2. Regular rate and rhythm. Respiratory: Lungs are clear to auscultation bilaterally. No wheezing or crackles heard. Abdomen: Soft, nontender, not distended, normal bowel sounds. Skin: Warm to touch, dry, no rashes noted Musculoskeletal: No gross injuries. Able to move all 4 extremities. No pitting edema Neuro: Alert and oriented x3. No focal neuro deficits. Psych: Normal affect and mood Objective Labs 10/27/24 05:00 10/27/24 05:00 Labs: Laboratory Results - last 24 hr 10/27/24 05:00 WBC 8.2 RBC 3.98 L Hgb 13.2 L D Hct 37.2 L MCV 94 MCH 33.2 MCHC 35.5 RDW Std Deviation 43.0 Plt Count 144 D Neut % (Auto) 78 Lymph % (Auto) 13 [place] % (Auto) 8 Eos % (Auto) 1 Baso % (Auto) 0 Neut # (Auto) 6.4 Lymph # (Auto) 1.1 [place] # (Auto) 0.6 Eos # (Auto) 0.1 Baso # (Auto) 0.0 Immature Gran # (Auto) 0.03 H Absolute Nucleated RBC 0.00 Immature Gran % 0 Nucleated RBC % 0 Sodium 138 Potassium 4.0 Chloride 101 Carbon Dioxide 28.5 Anion Gap 9 BUN 6 L Creatinine 0.8 Estim Creat Clear Calc 114.7 eGFR > 60 BUN/Creatinine Ratio 8 L Glucose 96 Calculated Osmolality 273 L Calcium 8.6 Corrected Calcium 8.8 Magnesium 2.0 Total Bilirubin 0.9 AST 19 ALT 21 Alkaline Phosphatase 63 Total Protein 6.1 Albumin 3.8 Globulin 2.3 Albumin/Globulin Ratio 1.7 Quality Measures Quality Measures none Assessment & Plan Assessment Current Active Medications: Generic Name Dose Route Start Last Admin Trade Name Freq PRN Reason Stop Dose Admin Acetaminophen 650 mg 10/25/24 22:10 10/27/24 01:59 Acetaminophen 325 Mg Tablet PO 11/24/24 22:09 650 mg Q6H PRN Administration pain and Fever >100.4 Protocol Hydrocodone Bitart/Acetaminophen 1 tab 10/25/24 22:10 10/26/24 12:54 Hydrocodone/Apap 5/325 Tablet PO 10/30/24 22:09 1 tab Q4HR PRN Administration PAIN SCALE 4-6 (Moderate Folic Acid 1 mg 10/25/24 22:15 10/27/24 08:26 Folic Acid 1 Mg Tablet PO 10/30/24 22:14 1 mg BID KRISTIN Administration Heparin Sodium (Porcine) 5,000 unit 10/26/24 06:00 10/27/24 05:39 Heparin Sod Inj 5000 Unit/Ml Vial SC 11/09/24 05:59 5,000 unit Q8HR KRISTIN Administration Lorazepam 0.5 mg 10/25/24 22:15 Lorazepam 0.5 Mg Tablet PO 10/30/24 22:14 Q4HR PRN CIWA Score 2-6 Lorazepam 1 mg 10/25/24 22:15 Lorazepam 0.5 Mg Tablet PO 10/30/24 22:14 Q4HR PRN CIWA SCORE 7-11 Lorazepam 2 mg 10/25/24 22:15 Lorazepam 0.5 Mg Tablet PO 10/30/24 22:14 Q4HR PRN CIWA SCORE 12-15 Morphine Sulfate 1 mg 10/25/24 22:10 10/26/24 03:44 Morphine Sulf Inj 10 Mg/Ml Vial IVP 10/30/24 22:09 1 mg Q2H PRN Administration PAIN SCALE 7-10 (Severe Ondansetron HCl 4 mg 10/25/24 22:10 Ondansetron Inj 2 Mg/Ml Inj 2 Ml IVP 11/24/24 22:09 Q6H PRN NAUSEA OR VOMITING Protocol Pantoprazole Sodium 40 mg 10/26/24 09:00 10/27/24 08:26 Pantoprazole Inj 40 Mg Vial IVP 11/25/24 08:59 40 mg QDAY KRISTIN Administration Thiamine HCl 100 mg 10/25/24 22:15 10/27/24 08:26 Thiamine 100 Mg Tablet PO 10/30/24 22:14 100 mg BID KRISTIN Administration Plan 44-year-old male with past medical history as stated above who presented to the ED due to abdominal pain. Patient will be admitted for management of acute pancreatitis. #Acute pancreatitis 2/2 alcohol use #Alcohol use disorder #Cocaine use disorder Likely secondary to heavy alcohol use, typically drinks about 12 beers per day. Last drink was on Wednesday. Abdominal CT scan shows acute pancreatitis Lipase 1256 CIWA of 1-2 at the time of evaluation in ED ? Started clear liquid diet advance as tolerated ? Thiamine ? Folic acid ? IV hydration ? Pain control ? consider social consult in the setting of alcohol abuse and cocaine abuse ?Advancing diet to regular, will see how patient tolerates, anticipate discharge in next 24 hours # Asymptomatic sinus bradycardia-resolved Has seen insulation machine operator once in the past. Does not recall any abnormal findings. Says that he only had EKG done. He is asymptomatic. Unlikely to be medication induced as he did not take anything outpatient. - Follow-up with [facility] Maintenance: Disposition: MedSurg, IV fluids for acute pancreatitis, CIWA Fluids: NS75 cc/h Feeding:Advanced to regular diet Thrombo prophylaxis: Heparin CODE STATUS: Full code The patient's management plan was discussed with my attending physician Dr. Gonzalez. Kerri Desai MD PGY-2 Attending Provider Attestation/Addendum I attest that I was physically present for the evaluation, physical examination, lab and imaging review of the patient with the residents. I discussed the case with the residents and agree with the findings and plans of care as documented above. At bedside today, patient states his pain continues to improve. Denies any nausea or vomiting. Tolerated full liquid diet this morning, we will advance his diet to regular diet. Given patient's oral intake, we will decrease the rest of IV hydration. Patient had bradycardia on presentation, echocardiography was ordered, awaiting report. If patient continues to be stable tomorrow and able to tolerate his diet, we will plan for discharge. José Miguel Gonzalez MD
--- NOTE | 2024-10-27 09:53 | ECHO_ITS ---
Transthoracic Echo Report Ht (in): 64 Wt (lb): 175 Exam Location: Echo Lab Status: Inpatient Electrical Appliance Repairer: Lorena Garcia Indications: Procedure Performed: BP: 171 / 92 HR: 53 Technical Quality: Adequate MEASUREMENTS (Male / Female) Normal Values 2D ECHO LV Diastolic Diameter PLAX 4.5 cm 4.2 - 5.9 / 3.9 - 5.3 cm LV Systolic Diameter PLAX 2.9 cm IVS Diastolic Thickness 0.6 cm 0.6 - 1.0 / 0.6 - 0.9 cm LVPW Diastolic Thickness 1.1 cm 0.6 - 1.0 / 0.6 - 0.9 cm LV Relative Wall Thickness 0.4 LVOT Diameter 2.4 cm LA Volume Index 33.0 cm?/m? 16 - 28 cm?/m? Ascending Aorta Diameter 3.2 cm DOPPLER AV Peak Velocity 110.0 cm/s AV Peak Gradient 4.8 mmHg LVOT Peak Velocity 95.1 cm/s LVOT Peak Gradient 3.6 mmHg AV Area Cont Eq pk 3.9 cm? MV Area PHT 3.5 cm? Mitral E Point Velocity 72.8 cm/s Mitral A Point Velocity 76.2 cm/s Mitral E to A Ratio 1.0 LV E' Lateral Velocity 11.6 cm/s Mitral E to LV E' Lateral Ratio 6.3 LV E' Septal Velocity 9.9 cm/s Mitral E to LV E' Septal Ratio 7.4 PV Peak Velocity 152.0 cm/s PV Peak Gradient 9.2 mmHg FINDINGS Left Ventricle Normal left ventricular size, wall thickness, systolic function with no obvious regional wall motion abnormalities. Normal left ventricular diastolic filling pattern for age. The ejection fraction is visually estimated at 60 %. Right Ventricle The right ventricle is normal in size and systolic function. The estimated right ventricular systolic pressure can not be determined due to innadequate Doppler signal. Left Atrium The left atrium is mildly enlarged. Right Atrium The right atrium is normal by two-dimensional imaging, color flow and Doppler imaging with no structural abnormalities, no thrombus formation present. Atrial Septum The interatrial septum appears normal with no evidence of a shunt. Aorta The aorta is normal by two-dimensional, color flow and Doppler interrogation. Mitral Valve The mitral valve is normal by two-dimensional, color flow and Doppler interrogation. There is no significant mitral valve regurgitation, stenosis or prolapse. Aortic Valve The aortic valve is trileaflet and normal by two-dimensional, color flow and Doppler interrogation. There is no significant aortic valve regurgitation. Tricuspid Valve The tricuspid valve is normal by two-dimensional, color flow and Doppler interrogation. There is no significant tricuspid valve regurgitation. Pulmonic Valve The pulmonic valve is not well visualized. There is no significant pulmonic valve regurgitation. Vessels The pulmonary artery appears normal. The inferior vena cava pulmonary and hepatic veins appear normal. Pericardium The pericardium is normal by two-dimensional imaging. There is no significant pericardial effusion. CONCLUSIONS Indications: Bradycarida, History of coccaine use, polysubstance abuse Normal LV size and function with an estimated EF of 60 to 60%. Normal diastolic function. Normal RV size and function. Normal RVSP. Trace TR. Mild left atrial enlargement. No Pericardial Effusion. Sadi Mendoza (Electronically Signed) Final Date: 29 October 2024 07:54
[2024-10-27] MEDS: RINGERS LACTATED 1000 ML 1,000 ML 80 ML IV ×2 (11:00→16:01)
--- NOTE | 2024-10-27 12:51 | PC.SS ---
SS follow up note; Patient is on IV fluids, if able to tolerate diet, patient will discharge home today.
[2024-10-28] VITALS: BP 146/74; PULSE 72; RESP 18; TEMP 36.5; O2SAT 96
[2024-10-28] MEDS: RINGERS LACTATED 1000 ML 1,000 ML 80 ML IV (00:01)
[2024-10-28 04:00] VITALS: BP 133/80; PULSE 56; RESP 18; TEMP 36.2; O2SAT 97
[2024-10-28 05:51] LABS: Basophils % (Auto) 0 % (0-2.5); Eosinophils # (Auto) 0.1 Thou/mm3 (0.0-0.5); Eosinophils % (Auto) 2 % (0-10); Hematocrit 35.9 % (41.0-53.0); Hemoglobin 12.5 g/dL (13.5-16.0); Immature Granulocytes % (Auto) 0 % (0-0); Immature Granulocytes Auto 0.02 Thou/mm3 (0.00-0.00); Lymphocytes # (Auto) 1.3 Thou/mm3 (1.0-4.8); Lymphocytes % (Auto) 19 % (10-50); Mean Corpuscular HGB Conc 34.8 g/dl (31.0-37.0); Mean Corpuscular Hemoglobin 33.2 pg (25.0-35.0); Mean Corpuscular Volume 95 fL (80-100); Monocytes # (Auto) 0.6 Thou/mm3 (0.0-0.8); Monocytes % (Auto) 9 % (0-12); Neutrophils # (Auto) 4.8 Thou/mm3 (1.8-7.7); Neutrophils % (Auto) 71 % (37-80); Nucleated Red Blood Cell % 0 /100 WBC (0); Platelet Count 149 Thou/mm3 (140-440); RDW Standard Deviation 43.1 fL (35.1-43.9); Red Blood Count 3.77 Miln/mm3 (4.50-5.90); White Blood Count 6.8 Thou/mm3 (3.8-10.6)
[2024-10-28 06:16] LABS: Alanine Aminotransferase 20 U/L (10-49); Albumin, Serum 3.9 gm/dL (3.5-5.0); Albumin/Globulin Ratio 1.6 (1.2-2.2); Alkaline Phosphatase 63 U/L (46-116); Anion Gap 9 (7-16); Aspartate Amino Transferase 20 U/L (0-34); BUN/Creatinine Ratio 9 Ratio (12-20); Bilirubin,Total 0.6 mg/dL (0.3-1.2); Blood Urea Nitrogen 7 mg/dL (9-23); Calcium 8.9 mg/dL (8.3-10.6); Chloride 100 mMol/L (98-107); Creatinine (Component) 0.8 mg/dL (0.6-1.3); Estimated Creatinine Clearance 114.7 mL/min (>60); Globulin 2.4 gm/dL (2.3-3.5); Glucose 111 mg/dL (74-106); Magnesium 2.1 mg/dL (1.6-2.6); Osmolality,Calculated 276 (275-295); Potassium 3.9 mMol/L (3.4-5.1); Sodium 139 mMol/L (136-145); Total Protein 6.3 gm/dL (5.7-8.2); eGFR > 60 See Note
[2024-10-28 08:00] VITALS: BP 139/96; PULSE 64; RESP 18; TEMP 36.5; O2SAT 97
[2024-10-28 08:32] VITALS: PULSE 65; RESP 18; RESP 96
[2024-10-28 08:51] VITALS: BMI 29.2
[2024-10-28] MEDS: THIAMINE 100 MG TABLET PO (08:58)
[2024-10-28] MEDS: FOLIC ACID 1 MG TABLET PO (08:58)
[2024-10-28] MEDS: PANTOPRAZOLE INJ 40 MG VIAL IVP (09:00)
--- NOTE | 2024-10-28 09:29 | ESDS_ITS ---
Planned Discharge Date 10/28/24 DS: Providers Provider Date of admission: 10/25/24 22:04 Primary care physician: Gavin Maria MD Admitting Provider: Trista Guido MD Attending Provider on Admission: José Miguel Gonzalez MD Attending Provider on DC: José Miguel Gonzalez MD Discharging Provider: José Miguel Gonzalez MD DS: Diagnosis Problem List Completed Was Problem List Reviewed/Reconciled?: Yes Hospital Course Hospital Course Hospital course: Reason for hospitalization: alcoholic pancreatitis 44-year-old male with Hx of HTN, polysubstance use disorder, fatty liver presented to ED with abdominal pain and nausea noted to have acute pancreatitis. Reported taking heavy amount of alcohol (12 pack beer) particularly on weekends with heavier drinking. Also noted to have cocaine on Utox. Abdominal CT scan shows acute pancreatitis with Lipase 1256. He was given adequate fluid resuscitation and pain management. His diet was slowly advanced and was tolerated well. Had no episodes of abdominal pain or vomiting before discharge. Endorsed normal bowel movements. During hospitalization he was noted to have asymptomatic sinus bradycardia in the 50s. Echo was completed and patient instructed to follow-up with PCP to obtain results. Patient is now in stable condition and ready for discharge. He was counseled and given resources for support of alcohol cessation. Recommendations were given as below. Discharge Recommendations: Refrain from alcohol consumption. Follow up with your PCP in 1-2 weeks for results of your echo. Return to ED if symptoms return. Hospital Diagnoses: #Acute pancreatitis 2/2 alcohol use #Alcohol use disorder #Cocaine use disorder # Asymptomatic sinus bradycardia The patient's management plan was discussed with my attending physician Dr. Gonzalez. Shivani Spaulding MD, PGY-1 Time spent discussing smoking cessation with patient: more than 10 minutes Time Spent with Patient Time attestation: Total time spent providing and/or coordinating discharge services: Time spent: Less than 30 minutes Exam Vital Signs Temp Pulse Resp BP Pulse Ox O2 Del Method O2 Flow Rate 97.7 F 65 18 139/96 H 97 Room Air 1 10/28/24 08:00 10/28/24 08:32 10/28/24 08:32 10/28/24 08:00 10/28/24 08:00 10/28/24 08:00 10/26/24 07:52 Narrative Exam General: young male, No acute distress, cooperative HEENT: NCAT, No JVD noted. Mucosa moist. Pupils are equal and reactive to light bilaterally Cardiovascular: Normal S1 and S2. Regular rate and rhythm. Respiratory: Lungs are clear to auscultation bilaterally. No wheezing or crackles heard. Abdomen: Soft, nontender, not distended, normal bowel sounds. Skin: Warm to touch, dry, no rashes noted Musculoskeletal: No gross injuries. Able to move all 4 extremities. No pitting edema Neuro: Alert and oriented x3. No focal neuro deficits. Psych: Normal affect and mood Discharge Plan Plan Patient Disposition: HOME (Self Care) Patient condition on transfer: Stable Prescriptions/Referrals Prescriptions/Med Rec: No Action No Known Home Medications Referrals: Gavin Maria MD ([place]) [Primary Care Provider] - Patient/Caregiver Discharge Instructions Other Discharge Activity Instructions:: Refrain from alcohol consumption. Follow up with your PCP in 1-2 weeks for results of your echo. Return to ED if symptoms return. Education Materials: Understanding Pancreatitis, Alcoholism Resources, ED Pancreatitis Print Language: Mongolian Stand Alone Forms: Maureen Award Info., Patient Portal Info Letter Discharge Order Discharge Orders: Discharge (Routine); Ordered 10/28/24 Ordered By: Shivani Spaulding Quality Discharge Quality Measures VTE prophylaxis Attestestation MD Attestation I attest that I was physically present for the evaluation, physical examination, lab and imaging review of the patient with the residents. I discussed the case with the residents and agree with the findings and plans of care as documented above. José Miguel Gonzalez MD
== END 2024-10-28 11:03 | disposition home or self-care (01) | DRG 440 ==
LOC: SERX 22:21 → SERHOLD 10-26 06:07 → S3SX 10-26 06:07
PROVIDERS: Nurse Practitioner Primary Care; Admitting Provider Student in an Organized Health Care Education/Training Program; Emergency Provider Emergency Medicine; PCP Family Medicine; Visit Provider Student in an Organized Health Care Education/Training Program
DX: K85.20 Alcohol induced acute pancreatitis without necrosis or infection (principal); K76.0 Fatty (change of) liver, not elsewhere classified; I10 Essential (primary) hypertension; F10.10 Alcohol abuse, uncomplicated; F14.10 Cocaine abuse, uncomplicated; R00.1 Bradycardia, unspecified; Z88.0 Allergy status to penicillin
CPT/HCPCS: 36415; 71045; 74177; 76705; 80053; 80061; 80307; 80320; 81001; 83690; 83735; 84484; 85025; 85610; 93005; 93306; 96361; 96374; 96375; 96376; A4649; J1644; J2060; J2270; J2405; J2470; J7030; J7120; Q9967; A9270; G0480